=== PATIENT | female | born 2000 | race Caucasian/White ===

== ENCOUNTER 2021-02-10 23:29 | Emergency (ER) | payer BC, OTHER ==
[~2021-02-10] VITALS: Ht 175 cm; Wt 66.0 kg
[2021-02-10] MEDS ORDERED: BUSP5TAB59 (23:44)
--- NOTE | 2021-02-10 23:48 | ED Neurological Problem ---
General Chief Complaint: Neurological Problems Stated Complaint: SEIZURE Source: patient, EMS Exam Limitations: no limitations History of Present Illness Date Seen by Provider: Feb 10, 2021 Time Seen by Provider: 11:34 Initial Comments Here by EMS with report of seizure at home that lasted 2 to 3 minutes per her boyfriend. She had taken her normal medicines tonight but is not currently on a seizure medicine. Last seizure approximately a year ago. She does have an establish care appointment with neurologist in [place] in April. She has been on a few different seizure medicines in the past but does not remember any except Lamictal. She is currently on buspirone, citalopram and trazodone. 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 She is vaccinated for Covid and has no symptoms and tests often due to her job. She is negative. Denies nausea, vomiting or diarrhea. Denies chest pain or breathing problems or any muscular skeletal pain currently. She was laying down when the seizure occurred and did not harm anything. Has no bites on her tongue or oral lesions. Timing/Duration: 1/2 hour Severity: moderate Associated Symptoms: seizures Allergies and Home Medications Allergies Coded Allergies: No Known Drug Allergies (Unverified , 02/10/21) Patient Home Medication List Home Medication List Reviewed: Yes Buspirone HCl (Buspirone HCl) 5 Mg Tablet, (Reported) Entered as Reported by: KATHLEEN BATISTA on 02/10/21 6608 Last Action: New Order Review of Systems Review of Systems Constitutional: see HPI; No chills, No fever Eyes: No Symptoms Reported Ears, Nose, Mouth, Throat: no symptoms reported Respiratory: No cough, No short of breath Cardiovascular: No chest pain, No edema Gastrointestinal: No nausea, No vomiting Musculoskeletal: No back pain, No joint pain, No muscle pain Skin: no symptoms reported All Other Systems Reviewed Negative Unless Noted: Yes Past Xjkrcao-Ytjzyd-Bshjvd Hx Patient Social History Tobacco Use?: Yes Tobacco type used: Cigarettes Smoking Status: Current Someday Smoker Use of E-Cig and/or Vaping dev: Yes Use of E-Cig and/or Vaping John: Current Everyday User Substance use?: Yes Substance type: Marijuana Substance frequency: Daily Alcohol Use?: No Pt feels they are or have been: No Immunizations Up To Date Influenza Vaccine Up-to-Date: Yes; Up-to-Date First/Initial COVID19 Vaccinat: MAY 2020 Second COVID19 Vaccination James: JUNE 2020 COVID19 Vaccine Manager Assurance: VITALIY Past Medical History Surgery/Hospitalization HX: DEPRESSION, ANXIETY, SEIZURES, MIGRANES Surgeries: No Respiratory: No Cardiac: No Neurological: Yes Headaches /Migraines, Seizure Disorder Anxiety, Depression Physical Exam Vital Signs Vital Signs - First Documented 02/10/21 23:29 Temp 36.9 Pulse 95 Resp 17 B/P (MAP) 132/87 (102) Pulse Ox 96 O2 Delivery Room Air Capillary Refill : Height, Weight, BMI Height: '" Weight: lbs. oz. kg; BMI Method: General Appearance: WD/WN, no apparent distress HEENT: PERRL/EOMI, pharynx normal Neck: full range of motion, supple Respiratory: lungs clear, normal breath sounds Cardiovascular: regular rate, rhythm, no murmur Gastrointestinal: non tender, soft Back: normal inspection, no CVA tenderness, no vertebral tenderness Extremities: non-tender, normal inspection Neurologic/Psychiatric: alert, oriented x 3 Crainal Nerves: normal hearing, normal speech, PERRL Motor/Sensory: no motor deficit, no sensory deficit Skin: normal color, warm/dry Progress/Results/Core Measures Results/Orders Lab Results Laboratory Tests Test 02/10/21 23:30 Range/Units White Blood Count 7.7 4.3-11.0 10^3/uL Red Blood Count 4.10 3.80-5.11 10^6/uL Hemoglobin 13.0 11.5-16.0 g/dL Hematocrit 38 35-52 % Mean Corpuscular Volume 93 80-99 fL Mean Corpuscular Hemoglobin 32 25-34 pg Mean Corpuscular Hemoglobin Concent 34 32-36 g/dL Red Cell Distribution Width 11.9 10.0-14.5 % Platelet Count 254 130-400 10^3/uL Mean Platelet Volume 9.7 9.0-12.2 fL Immature Granulocyte % (Auto) 0 % Neutrophils (%) (Auto) 47 42-75 % Lymphocytes (%) (Auto) 41 12-44 % Monocytes (%) (Auto) 8 0-12 % Eosinophils (%) (Auto) 3 0-10 % Basophils (%) (Auto) 1 0-10 % Neutrophils # (Auto) 3.6 1.8-7.8 10^3/uL Lymphocytes # (Auto) 3.2 1.0-4.0 10^3/uL Monocytes # (Auto) 0.7 0.0-1.0 10^3/uL Eosinophils # (Auto) 0.2 0.0-0.3 10^3/uL Basophils # (Auto) 0.1 0.0-0.1 10^3/uL Immature Granulocyte # (Auto) 0.0 0.0-0.1 10^3/uL Urine Color YELLOW Urine Clarity CLEAR Urine pH 6.0 5-9 Urine Specific [place] 1.020 1.016-1.022 Urine Protein NEGATIVE NEGATIVE Urine Glucose (UA) NEGATIVE NEGATIVE Urine Ketones NEGATIVE NEGATIVE Urine Nitrite NEGATIVE NEGATIVE Urine Bilirubin NEGATIVE NEGATIVE Urine Urobilinogen 0.2 < = 1.0 MG/DL Urine Leukocyte Esterase NEGATIVE NEGATIVE Urine RBC (Auto) NEGATIVE NEGATIVE Urine RBC NONE /HPF Urine WBC NONE /HPF Urine Squamous Epithelial Cells RARE /HPF Urine Crystals NONE /LPF Urine Bacteria NEGATIVE /HPF Urine Casts NONE /LPF Urine Mucus NEGATIVE /LPF Urine Culture Indicated NO Sodium Level 141 135-145 MMOL/L Potassium Level 3.7 3.6-5.0 MMOL/L Chloride Level 105 98-107 MMOL/L Carbon Dioxide Level 22 21-32 MMOL/L Anion Gap 14 5-14 MMOL/L Blood Urea Nitrogen 12 7-18 MG/DL Creatinine 0.79 0.60-1.30 MG/DL Estimat Glomerular Filtration Rate 92 BUN/Creatinine Ratio 15 Glucose Level 77 70-105 MG/DL Calcium Level 9.2 8.5-10.1 MG/DL Corrected Calcium 9.0 8.5-10.1 MG/DL Magnesium Level 2.1 1.6-2.4 MG/DL Total Bilirubin 0.3 0.1-1.0 MG/DL Aspartate Amino Transf (AST/SGOT) 15 5-34 U/L Alanine Aminotransferase (ALT/SGPT) 12 0-55 U/L Alkaline Phosphatase 41 40-136 U/L Total Protein 6.9 6.4-8.2 GM/DL Albumin 4.3 3.2-4.5 GM/DL My Orders Orders - CLAUDIA KNOWLES MD Ed Iv/Invasive Line Start (02/10/21 23:41) Urine Bedside (02/10/21 23:41) Cbc With Automated Diff (02/10/21 23:41) Comprehensive Metabolic Panel (02/10/21 23:41) Magnesium (02/10/21 23:41) Levetiracetam Injection (Keppra Injectio (02/10/21 23:41) Ua Culture If Indicated (02/10/21 23:41) Vital Signs/I&O 02/10/21 23:29 Temp 36.9 Pulse 95 Resp 17 B/P (MAP) 132/87 (102) Pulse Ox 96 O2 Delivery Room Air Progress Progress Note : Progress Note Seen and evaluated on arrival by EMS. IV by EMS. Labs ordered. We will check UCG. We will check basic chemistry and blood panel. I did discuss with her about starting seizure medicine versus waiting until neurologist visit. She would like to go ahead and start a medicine given her history and recent increased stress. We will initiate Keppra 500 mg IV now and I will initiate outpatient treatment to allow her to get to neurology visit. We will monitor for return of symptoms and awaiting labs. Monitor patient. 0047: No acute findings on labs. No repeat seizures. Overall feeling better. I will discharge her home on low-dose Keppra. She will try to follow-up with her neurologist for April. Discharged home with return precautions. Patient verbalized understanding instructions and agreement with plan. Departure Impression Primary Impression: Seizure Disposition: 01 HOME, SELF-CARE Condition: Improved Departure-Patient Inst. Decision time for Depature: 00:49 Patient Instructions: Seizures, Adult ED Add. Discharge Instructions: All discharge instructions reviewed with patient and/or family. Voiced understanding. Take medications as directed. Call your neurologist for possible appointment sooner than the scheduled appointment in April. Drink plenty of fluids, eat a normal diet and get plenty of rest. Return for seizure, weakness, breathing problems or other concerns as needed. Scripts Levetiracetam (Levetiracetam) 500 Mg Tablet 500 MG PO BID, #60 TAB 3 Refills Prov: CLAUDIA KNOWLES MD 02/11/21 CLAUDIA KNOWLES MD Feb 10, 2021 23:48
[2021-02-10 23:58] LABS: BASOPHILS # (AUTO) 0.1 10^3/uL (0.0-0.1); BASOPHILS % (AUTO) 1 % (0-10); EOSINOPHILS # (AUTO) 0.2 10^3/uL (0.0-0.3); EOSINOPHILS % (AUTO) 3 % (0-10); HEMATOCRIT 38 % (35-52); LYMPHOCYTES # (AUTO) 3.2 10^3/uL (1.0-4.0); LYMPHOCYTES % (AUTO) 41 % (12-44); MEAN CORPUSCULAR HEMOGLOBIN 32 pg (25-34); MEAN CORPUSCULAR HGB CONC 34 g/dL (32-36); MEAN CORPUSCULAR VOLUME 93 fL (80-99); MEAN PLATELET VOLUME 9.7 fL (9.0-12.2); MONOCYTES # (AUTO) 0.7 10^3/uL (0.0-1.0); MONOCYTES % (AUTO) 8 % (0-12); NEUTROPHILS # (AUTO) 3.6 10^3/uL (1.8-7.8); NEUTROPHILS % (AUTO) 47 % (42-75); PLATELET COUNT 254 10^3/uL (130-400); WHITE BLOOD COUNT 7.7 10^3/uL (4.3-11.0)
[2021-02-11 00:04] LABS: BILIRUBIN,URINE NEGATIVE (NEGATIVE); CLARITY,URINE CLEAR; COLOR,URINE YELLOW; GLUCOSE, URINE (UA) NEGATIVE (NEGATIVE); KETONES,URINE NEGATIVE (NEGATIVE); LEUKOCYTE ESTERASE ,URINE NEGATIVE (NEGATIVE); NITRITE,URINE NEGATIVE (NEGATIVE); PROTEIN,URINE NEGATIVE (NEGATIVE)
[2021-02-11 00:12] LABS: BACTERIA,URINE NEGATIVE /HPF; SQUAMOUS EPITHELIAL CELL,UR RARE /HPF
[2021-02-11 00:21] LABS: ALBUMIN 4.3 GM/DL (3.2-4.5); POTASSIUM 3.7 MMOL/L (3.6-5.0)
[2021-02-11 00:22] LABS: CALCIUM 9.2 MG/DL (8.5-10.1)
[2021-02-11 00:23] LABS: TOTAL PROTEIN 6.9 GM/DL (6.4-8.2)
[2021-02-11 00:25] LABS: BILIRUBIN,TOTAL 0.3 MG/DL (0.1-1.0)
[2021-02-11 00:27] LABS: CREATININE SERUM 0.79 MG/DL (0.60-1.30)
[2021-02-11 00:30] LABS: MAGNESIUM 2.1 MG/DL (1.6-2.4)
[2021-02-11] MEDS ORDERED: LEVE500T6 PO (00:51)
[2021-02-11 01:04] VITALS: BP 110/72
== END 2021-02-11 01:05 | disposition home or self-care (01) ==
LOC: ER 23:30
DX: G40.909 Epilepsy, unspecified, not intractable, without status epilepticus (principal); F41.9 Anxiety disorder, unspecified; F17.210 Nicotine dependence, cigarettes, uncomplicated
CPT/HCPCS: 36415; 80053; 81000; 83735; 84703; 85025; 99283

== ENCOUNTER → 2021-02-26 | Outpatient (CLI) | payer BC ==
[~2021-02-26] MED LIST: BUSP5TAB59; LEVE500T6 PO
--- NOTE | 2021-02-26 18:52 | Diagnostic Imaging Report ---
CLINICAL INDICATION: Patient with seizure disorder. Patient has history of brain surgery following stroke several years ago. Exam: Axial CT scan of the brain without IV contrast with coronal and sagittal reformatted images. Auto Exposure Controls were utilized during the CT exam to meet ALARA standards for radiation dose reduction. Comparison: None. Findings: There is no evidence of acute cerebral infarct, intracranial hemorrhage, or gross mass effect. There are postoperative changes with craniotomy involving the left side of the skull. There is encephalomalacia, low density and parenchymal defect involving the lateral left frontal lobe region. There is ex vacuo dilation of the anterior aspect of the left lateral ventricle. The remainder of the brain parenchyma is unremarkable. The brain parenchymal volume is appropriate for patient's age besides postop changes. There is no hydrocephalus. Basal cisterns are unremarkable. Besides postoperative changes, the extracranial soft tissue, skull, and orbits are unremarkable. Paranasal sinuses and mastoid air cells are clear. IMPRESSION: 1: There is no CT evidence of acute intracranial process. 2: There are postop changes with left skull craniotomy and encephalomalacia and parenchymal defect involving the lateral left frontal lobe. 3: The remainder of the brain parenchyma is unremarkable. Dictated by: Dictated on workstation # [id number]
== END ==
LOC: RAD 16:15
PROVIDERS: ATTEND Internal Medicine
DX: G40.909 Epilepsy, unspecified, not intractable, without status epilepticus (principal); Z98.890 Other specified postprocedural states
CPT/HCPCS: 70450

== ENCOUNTER → 2021-03-07 | Outpatient (CLI) | payer BC ==
--- NOTE | 2021-03-07 16:23 | Diagnostic Imaging Report ---
PROCEDURE: MR imaging of the brain without contrast. TECHNIQUE: Multiplanar, multisequence MR imaging of the brain was performed without contrast. INDICATION: Seizure disorder COMPARISON: CT of the head performed on 02/26/2021. Similar to the previous study, there are postoperative findings of left frontal craniotomy and underlying encephalomalacia in the posterior left frontal lobe. There is no evidence of hemorrhage or significant hemosiderin deposition within the brain. There is prominent CSF in the anterior aspect of the left middle cranial fossa which could be due to arachnoid cyst. Otherwise, brand-white matter signal intensities are unremarkable. The increased T2 signal within the left frontal white matter corresponds to low density on the previous CT exam. There is mild associated scoliosis within the anterior left temporal white matter as well. This is associated with volume loss. There is no restricted diffusion to indicate an acute infarct. The hippocampal formations are symmetric without significant signal abnormality. IMPRESSION: Gliosis and encephalomalacia likely related to previous surgery and/or other insult in the left frontal region and anterior left temporal lobe are noted with similar distribution to the recent CT scan. Otherwise no specific lesion, ischemic focus or mass effect is identified in the brain. Dictated by: Dictated on workstation # [id number]
== END ==
LOC: RAD 14:45
PROVIDERS: ATTEND Internal Medicine
DX: G40.909 Epilepsy, unspecified, not intractable, without status epilepticus (principal)
CPT/HCPCS: 70551